=== PATIENT | female | born 1975 | race American Indian/Alaskan Native ===

== ENCOUNTER 2017-05-20 10:14 | Emergency (ER) | payer MEDICAID ==
[2017-05-20 11:08] VITALS: BP 241/106
[2017-05-20] MEDS ORDERED: CATAPRES ONE (11:20)
[2017-05-20] MEDS ORDERED: CATAPRES PO ONE (11:22)
== END 2017-05-20 21:10 | disposition left against medical advice (07) ==
LOC: ED 10:14
DX: R10.30 Lower abdominal pain, unspecified (principal); Z53.21 Procedure and treatment not carried out due to patient leaving prior to being seen by health care provider